=== PATIENT | female | born 1990 | race Caucasian/White ===

== ENCOUNTER 2020-03-03 06:00 | Day surgery (SDC) | payer OTHER, SELFPAY ==
[~2020-03-03] VITALS: Ht 162.6 cm; Wt 95.3 kg
[2020-03-03] MEDS ORDERED: NS IRRIG SOLN 1000 ML IR ONE (07:15)
[2020-03-03] MEDS ORDERED: LR 1,000 ML IV.SOLN IV ONE (07:15)
[2020-03-03 08:37] VITALS: BP_SYST 126
[2020-03-03] MEDS ORDERED: MORPHINE 4 MG/ML INJ. SYRINGE IM PRN (08:45)
[2020-03-03] MEDS ORDERED: TERBUTALINE SULFATE 1 MG/ML VIAL SUBCUT PRN (08:45)
[2020-03-03] MEDS ORDERED: DIPHENHYDRAMINE INJ 50 MG/ML VIAL IM PRN (09:00)
[2020-03-03] MEDS ORDERED: ONDANSETRON HCL 4 MG/2 ML VIAL IVP PRN (09:00)
[2020-03-03] MEDS ORDERED: KETOROLAC TROMETHAMINE 60 MG/2 ML VIAL IM PRN (09:00)
[2020-03-03] MEDS ORDERED: CEFAZOLIN 1 GM IVPB PREMIX 50 ML IV ONE (15:00)
== END 2020-03-03 19:00 | disposition home or self-care (01) ==
LOC: SMU 06:00 → SDS 06:00 → SPU 10:00 → SDS 19:00
PROVIDERS: ATTEND Specialist
DX: O34.31 Maternal care for cervical incompetence, first trimester (principal); Z3A.14 14 weeks gestation of pregnancy; Z20.828 Contact with and (suspected) exposure to other viral communicable diseases
CPT/HCPCS: 59320; 87070 ×2; J0690; J7120; U0003; J3105